=== PATIENT | female | born 1955 | race African-American/Black ===

== ENCOUNTER 2019-09-26 02:28 | Emergency (ER) | payer MEDICARE, MEDICAID ==
[~2019-09-26] VITALS: Ht 157.5 cm; Wt 45.0 kg
[2019-09-26] MEDS ORDERED: SODIUM CHLORIDE 0.9% 1,000 ML IV ONE (03:11)
[2019-09-26] MEDS ORDERED: LORAZEPAM 1MG TABLET PO ONE (03:15)
[2019-09-26 04:19] LABS: CLARITY URINE CLEAR (CLEAR); COLOR URINE YELLOW (YELLOW); KETONES URINE NEGATIVE (NEGATIVE); LEUKOCYTE ESTERASE URINE 1+ (NEGATIVE); NITRITE URINE POSITIVE (NEGATIVE); OCCULT BLOOD URINE TRACE (NEGATIVE); PH URINE 6.5 (4.5-8.0); PROTEIN URINE 1+ (NEGATIVE); SPECIFIC GRAVITY URINE 1.016 (1.005-1.030)
[2019-09-26 04:33] LABS: *AMPHETAMINES SCREEN URINE NEGATIVE (NEGATIVE)
[2019-09-26 04:34] LABS: *BARBITURATES SCREEN URINE NEGATIVE (NEGATIVE); *BENZODIAZEPINES SCREEN URINE NEGATIVE (NEGATIVE); *COCAINE SCREEN URINE PRESUMTIVE POSITIVE (NEGATIVE); METHADONE URINE SCREEN NEGATIVE (NEGATIVE); OPIATES URINE SCREEN PRESUMTIVE POSITIVE (NEGATIVE)
[2019-09-26 04:36] LABS: BASOPHILS % 0.6 % (0.0-2.0); EOSINOPHILS % 0.2 % (0.0-5.0); HEMATOCRIT. 28.2 % (36.0-48.0); HEMOGLOBIN. 8.9 g/dL (12.0-16.0); LYMPHOCYTES % 15.4 % (20.0-50.0); MEAN CORPUSCULAR HEMOGLOBIN 26.6 pg (28.0-32.0); MEAN CORPUSCULAR VOLUME 84.7 fL (81.0-99.0); MEAN PLATELET VOLUME 7.7 fl (7.4-10.4); MONOCYTES % 10.4 % (2.0-8.0); NEUTROPHILS % 73.4 % (40.0-76.0); PLATELET 275 x1000/uL (130-400); RED BLOOD CELL COUNT 3.32 mill/uL (4.2-5.4); RED CELL DISTRIBUTION WIDTH 16.6 % (11.6-14.6)
[2019-09-26 04:36] LABS: CANNABINOID URINE SCREEN NEGATIVE (NEGATIVE); PHENCYCLIDINE URINE SCREEN NEGATIVE (NEGATIVE)
[2019-09-26 04:45] LABS: CHLORIDE 105 mEq/L (98-107)
[2019-09-26 04:50] LABS: ETHANOL BLOOD < 10 mg/dL
[2019-09-26] MEDS ORDERED: NITROFURANTOIN MACROCRYSTAL 25MG CAPSULE PO SCH (09:00)
[2019-09-26] MEDS: NITROFURANTOIN MACROCRYSTAL 50MG CAPSULE PO SCH ×2 (12:21→17:00)
[2019-09-26 15:55] VITALS: BP 105/89
== END 2019-09-26 15:55 | disposition home or self-care (01) ==
LOC: ER 02:28
DX: G47.00 Insomnia, unspecified (principal); F14.10 Cocaine abuse, uncomplicated; F15.10 Other stimulant abuse, uncomplicated; F91.8 Other conduct disorders; I10 Essential (primary) hypertension
CPT/HCPCS: 36415; 80053; 80305; 80320; 81003; 82962; 85025; 99283; J7030; G0480